=== PATIENT | male | born 1950 | race Caucasian/White ===

== ENCOUNTER → 2016-12-13 | Outpatient (CLI) | payer MEDICARE ==
[~2016-12-13] MED LIST: HYDR-3533 PO
[2016-12-13 10:02] LABS: APTT (PATIENT) 29.8 SEC (24.3-30.1); PROTHROMBIN TIME - PATIENT 10.7 SEC (9.8-11.6)
[2016-12-13 10:04] LABS: BLOOD, URINE TRACE (NEG); COMMENT (UR) CULT NOT INDICATED; CULTURE IF INDICATED CULT NOT INDICATED; GLUCOSE,URINE NEG (NEG); HYALINE CAST, URINE 21 /lpf (RARE); KETONE, URINE NEG (NEG); MUCUS URINE MANY /lpf (OCC); NITRITE,URINE NEG (NEG); PH, URINE 5.5 (5.0-8.5); URINE COLOR YELLOW (YELLW/STRAW)
[2016-12-13 10:05] LABS: AUTOMATED NEUTROPHIL # 2.9 TH/MM3 (1.8-7.7); BASOPHIL % 0.6 % (0.0-2.0); EOSINOPHIL # 0.2 TH/MM3 (0-0.4); EOSINOPHIL % 2.8 % (0.0-4.0); HEMATOCRIT 43.1 % (39.0-51.0); HEMO FLAGS DIFF FINAL; LYMPH % 34.2 % (9.0-44.0); LYMPHOCYTE # 1.9 TH/MM3 (1.0-4.8); MEAN CELL VOLUME 91.1 FL (80.0-100.0); MEAN CORPUSCULAR HEMOGLOBIN 30.8 PG (27.0-34.0); MEAN CORPUSCULAR HGB CONC 33.8 % (32.0-36.0); MONO % 8.9 % (0.0-8.0); NEUT % 53.5 % (16.0-70.0); PLATELET COUNT 257 TH/MM3 (150-450); RED BLOOD COUNT 4.73 MIL/MM3 (4.50-5.90); WHITE BLOOD COUNT 5.4 TH/MM3 (4.0-11.0)
[2016-12-13 10:20] LABS: ANION GAP 5 MEQ/L (5-15); AST (GOT) 15 U/L (15-37); BICARBONATE 29.8 MEQ/L (21.0-32.0); BLOOD UREA NITROGEN 10 MG/DL (7-18); CHLORIDE 105 MEQ/L (98-107); GLUCOSE,FASTING 89 MG/DL (74-99); POTASSIUM 3.7 MEQ/L (3.5-5.1); SODIUM (NA) 140 MEQ/L (136-145)
[2016-12-13 10:27] LABS: ALKALINE PHOSPHATASE 72 U/L (45-117); ALT (GPT) 25 U/L (12-78); GLOMERULAR FILTRATION RATE 65 ML/MIN (>89)
--- NOTE | 2016-12-13 10:39 | RADRPT ---
EXAM DATE/TIME: 12/13/2016 10:10 [facility] COMPARISON: No previous studies available for comparison. INDICATIONS : Evaluate for pneumonia, pneumothorax, or communicable disease. Pre op for ventriculoperitoneal shunt replacement. MEDICAL HISTORY : None. SURGICAL HISTORY : None. ENCOUNTER: Initial ACUITY: 1 day PAIN SCORE: 0/10 LOCATION: Bilateral chest FINDINGS: PA and lateral views of the chest demonstrate the lungs to be symmetrically aerated without evidence of mass, infiltrate or effusion. The cardiomediastinal contours are unremarkable. Osseous structure s are intact. CONCLUSION: No acute disease. hCuy Russo MD on December 13, 2016 at 10:37 Board Certified Radiologist. This report was verified electronically.
--- NOTE | 2016-12-13 14:38 | EKG ---
Date Performed: 12/13/2016 Time Performed: 08:55:54 PTAGE: 66 years EKG: SINUS BRADYCARDIA BORDERLINE ECG NO PREVIOUS TRACING DOCTOR: Ean Davis Interpretating Date/Time 12/13/2016 14:35:46
== END ==
LOC: CPRE 08:42
PROVIDERS: ATTEND Neurological Surgery
DX: Z01.812 Encounter for preprocedural laboratory examination (principal); Z01.810 Encounter for preprocedural cardiovascular examination; Z01.811 Encounter for preprocedural respiratory examination; G91.1 Obstructive hydrocephalus
CPT/HCPCS: 36415; 71020; 80053; 81001; 85025; 85610; 85730; 93005

== ENCOUNTER 2016-12-18 08:47 | Inpatient (IN) | payer MEDICARE ==
[~2016-12-18] VITALS: Ht 182.9 cm; Wt 97.8 kg
[2016-12-18] MEDS ORDERED: SODIUM CHLOR 0.9% 1000 ML INJ 1,000 ML IV SCH (09:00)
[2016-12-18] MEDS ORDERED: INSULIN HUMAN REGULAR 1,000 UNITS/10 ML VIAL SQ PRN (09:30)
[2016-12-18] MEDS ORDERED: LACTATED RINGER'S 1000 ML IV PRN (09:30)
[2016-12-18] MEDS ORDERED: SODIUM CHLORID 0.9% 500 ML IV PRN (09:30)
[2016-12-18] MEDS ORDERED: POVIDONE IODINE 5% (ANTISEPSIS KIT) 4 APPLICATIONS EACH NARE PRN (09:30)
[2016-12-18] MEDS ORDERED: METOPROLOL TARTRATE 25 MG TAB PO PRN (09:30)
[2016-12-18] MEDS ORDERED: CHLORHEXIDINE GLUCONATE 2 % 1 PACK (2 CLOTHS) TOPICAL PRN (09:30)
[2016-12-18] MEDS ORDERED: VANCOMYCIN HCL 1000 MG ON-CALL/NS 250 ML IV SCH ×2 (09:45)
[2016-12-18] MEDS ORDERED: SODIUM CHLOR 0.9% 250 ML INJ 250 ML ONE (10:12)
[2016-12-18] MEDS ORDERED: NALOXONE HCL 0.4 MG/ML AMP IV PRN (10:15)
[2016-12-18] MEDS ORDERED: diphenhydrAMINE HCL 50 MG/ML VIAL IV PUSH PRN (10:15)
[2016-12-18] MEDS ORDERED: ceFAZolin 2 GM PREMIX 50 ML IV SCH ×2 (10:15→14:30)
[2016-12-18] MEDS ORDERED: MORPHINE SULFATE 4 MG/ML INJ IV PUSH PRN ×3 (10:15→14:30)
[2016-12-18] MEDS ORDERED: ACETAMINOPHEN 325 MG TAB PO PRN ×2 (10:15→14:30)
[2016-12-18] MEDS ORDERED: ePHEDrine/NS 25 MG/5 ML SYR IV ONE (12:00)
[2016-12-18] MEDS ORDERED: MIDAZOLAM HCL 2 MG/2 ML VIAL IV ONE (12:00)
[2016-12-18] MEDS ORDERED: MORPHINE SULFATE 2 MG/ML INJ IV PUSH PRN (12:00)
[2016-12-18] MEDS ORDERED: HYDROmorphone HCL PCA 6 MG/30 ML IV SCH (12:00)
[2016-12-18] MEDS ORDERED: PROPOFOL 200 MG/20 ML AMP IV ONE (12:00)
[2016-12-18] MEDS ORDERED: ONDANSETRON HCL 4 MG/2 ML VIAL IV PUSH ONE (12:00)
[2016-12-18] MEDS ORDERED: SODIUM CHLORIDE 0.9% FLUSH 10 ML FLUSH IV FLUSH PRN (12:00)
[2016-12-18] MEDS ORDERED: LIDOCAINE HCL 1% PF 5 ML AMPULE OTHER ONE (12:00)
[2016-12-18] MEDS ORDERED: LACTATED RINGER'S 1000 ML INJ 1,000 ML IV ONE (12:00)
[2016-12-18] MEDS ORDERED: ROCURONIUM INJ 50 MG/5 ML SYRINGE IV PUSH ONE (12:00)
[2016-12-18] MEDS ORDERED: FAMOTIDINE 20 MG/2 ML VIAL ONE ×2 (12:46→14:52)
[2016-12-18] MEDS ORDERED: PCA - TOTAL MG DILAUDID DELIVERED PER SHIFT SCH (14:00)
[2016-12-18] MEDS ORDERED: THROMBIN (TOPICAL) 5,000 UNIT VIAL ONE (14:16)
[2016-12-18] MEDS ORDERED: GELATIN 12 MM/7 MM FOAM ONE (14:16)
[2016-12-18] MEDS ORDERED: LIDOCAINE 2%/EPINEPHrine PF 1:200,000 20ML SDV ONE (14:16)
[2016-12-18] MEDS ORDERED: BACITRACIN TOP OINT 15 GM TUBE ONE (14:16)
[2016-12-18] MEDS ORDERED: GENTAMICIN SULFATE 80 MG/2 ML VIAL ONE (14:17)
[2016-12-18] MEDS ORDERED: NS + KCL 20 MEQ INJ 1,000 ML IV SCH (14:29)
[2016-12-18] MEDS ORDERED: ACETAMINOPHEN/HYDROcodone 325 MG/10 MG TAB PO PRN ×2 (14:30)
[2016-12-18] MEDS ORDERED: SODIUM CHLORIDE 0.9% FLUSH 5 ML FLUSH IVF PRN (14:30)
[2016-12-18] MEDS ORDERED: EPINEPHRINE OTHER ONE (15:15)
[2016-12-18] MEDS ORDERED: LIDOCAINE OTHER ONE (15:15)
[2016-12-18] MEDS ORDERED: VANCOMYCIN INJ 1,000 MG in SODIUM CHLOR 0.9% 250 ML INJ 250 ML IV SCH (16:00)
--- NOTE | 2016-12-18 16:46 | PD.OP ---
Operative Report Date of Surgery: Dec 18, 2016 Preoperative Diagnosis: Normal pressure hydrocephalus Postoperative Diagnosis: Normal pressure hydrocephalus Procedure: Placement of ventriculoperitoneal shunt Anesthesia: general Surgeon: Ag Toribio Loom Blower(s): Nanda Person Operation and Findings: INTRAOPERATIVE FINDINGS:~ Clear cerebrospinal fluid with an opening pressure of 150 mm of water. INDICATIONS FOR PROCEDURE: Mr Guan is a 66 year old male with history of normal pressure hydrocephalus who presented with progressive gait imbalance and short term memory loss. He had chronic communicating hydrocephalus and his condition was getting progressively worse. He underwent evaluation with placement of a lumbar drain and cerebrospinal fluid drainage with very significant improvement in his symptoms. A ventriculoperitoneal shunt was indicated The [id number] details of the procedure, its indications, alternatives, risks , and potential complications of the surgery were fully discussed with the patient and his family. They fully understood. All their questions were answered. No guarantees were given. They voiced requesting the surgery and signed informed consent.They were offered the alternative of continuing nonsurgical treatment. DETAILS OF THE SURGICAL PROCEDURE: After the induction of general anesthesia, endotracheal intubation was performed. A Lennon catheter, bilateral JAN hose and sequential compression devices were placed and kept throughout the procedure. The patient was positioned supine on a 30-80 table with the head over a gel doughnut. All pressure points were carefully padded with eggcrate mattress. The right frontotemporal parietal area was shaved prepped and draped in the usual sterile fashion, as well as the neck, chest and abdomen. A small incision was made in the patient's right upper quadrant with a #10 blade and the dissection was carried out through the subcutaneous tissue and Tesha's fascia. The rectus sheath was carefully opened with Metzenbaum scissors and the rectus muscles were split along its fibers. The posterior rectus sheath was elevated and carefully opened. The peritoneum was elevated with mosquitoes and opened in the standard fashion. The peritoneal cavity was visualized and exposed. A pursestring suture was placed around the peritoneal opening. Using a tunneler a subcutaneous tunnel was created connecting the abdominal incision with the planned head incision. A small incision was made in the right frontal area and a self-retaining retractor was placed in the incision. An entry point for the catheter was selected 90 mm posterior to the supraorbital rim and 25 mm lateral to the midline. A Midas Efrain was used to create the shivani hole. The dura was coagulated with the bipolar in a cruciform fashion. A peritoneal catheter was placed in the subcutaneous tunnel previously created and a pocket was created underneath the galea for placement of the valve. A Padlet programmable valve has calibrated at a pressure of 110 mmHg and flushed according to the marketing summer intern's instructions. The valve was secured to the proximal end of the peritoneal catheter using a 2-0 silk. Then, a ventricular catheter was advanced into the ventricular system. A good flow of cerebrospinal fluid was obtained.~ The catheter was connected to the valve and the connection secured with a 2-0 silk. Cerebrospinal fluid was noted to drip through the distal end of the peritoneal catheter. The peritoneal catheter was placed in the peritoneal cavity under direct visualization. The pursestring suture was carefully adjusted with special care not to strangulate the catheter. The rectus sheath was closed using interrupted 2-0 Vicryl suture. The Tesha's fascia was approximated with 3-0 Vicryl, and the subcutaneous with 3-0 Vicryl. The skin was closed with running subcuticular 4-0 Vicryl in the abdomen. The skin incision was closed using interrupted 3-0 Vicryl for the galea and bertrand to the skin. At the end of the procedure, the sponge, needle and instrument counts were all correct. The estimated blood was less than 50 cc. No blood transfusion was given. No intraoperative complications occurred. The patient received preoperative prophylactic antibiotics. The patient was then extubated and transferred to the recovery room in stable condition. Ag Toribio MD Dec 18, 2016 16:46
[2016-12-18] MEDS ORDERED: DO NOT ADM ANY ANTICOAGULANT DRUGS PRN (16:51)
[2016-12-18] MEDS ORDERED: MORPHINE SULFATE 8 MG/ML INJ ONE (17:16)
[2016-12-18] MEDS ORDERED: *morphine SULFATE 8 MG/ML PERIprocedure ONLY ONE (17:49)
[2016-12-18] MEDS: NS + KCL 20 MEQ INJ 1,000 ML IV SCH ×2 (18:00→22:00)
[2016-12-18] MEDS ORDERED: *ENALAPRILAT 1.25 MG/ML VIAL PERIprocedural Use ONLY ONE ×2 (18:02→18:54)
[2016-12-18 19:24] LABS: CSF LYMPHOCYTES 0 %; CSF NEUTROPHILS 0 %; WBC TUBE #1 0 /MM3 (0-10)
[2016-12-18 20:06] VITALS: BP 163/85; PULSE 51; RESP 17; TEMP 97.2; O2SAT 94
[2016-12-18] MEDS: ONDANSETRON HCL 4 MG/2 ML VIAL IV PUSH PRN (20:44)
[2016-12-18] MEDS: ENALAPRILAT 1.25 MG/ML VIAL IV PRN (20:44)
[2016-12-18] MEDS: SODIUM CHLORIDE 0.9% FLUSH 10 ML FLUSH IV FLUSH SCH (20:44)
[2016-12-18] MEDS ORDERED: SODIUM CHLORIDE 0.9% FLUSH 5 ML FLUSH IVF SCH (21:00)
[2016-12-19] MEDS: VANCOMYCIN INJ 1,000 MG in SODIUM CHLOR 0.9% 250 ML INJ 250 ML IV SCH ×2 (00:02→10:57)
[2016-12-19 00:15] VITALS: BP 160/94; PULSE 74; RESP 17; TEMP 98.1; O2SAT 94
[2016-12-19] MEDS: ONDANSETRON HCL 4 MG/2 ML VIAL IV PUSH PRN ×2 (03:10→09:08)
[2016-12-19] MEDS: ENALAPRILAT 1.25 MG/ML VIAL IV PRN (03:10)
[2016-12-19 04:41] VITALS: BP 138/77; PULSE 67; RESP 17; TEMP 98.4; O2SAT 94
[2016-12-19 07:51] VITALS: BP 142/78; PULSE 64; RESP 20; TEMP 97.3; O2SAT 96
[2016-12-19] MEDS: NS + KCL 20 MEQ INJ 1,000 ML IV SCH ×2 (08:05→18:00)
[2016-12-19] MEDS: SODIUM CHLORIDE 0.9% FLUSH 10 ML FLUSH IV FLUSH SCH ×2 (08:08→21:00)
[2016-12-19] MEDS: PANTOPRAZOLE SODIUM 40 MG VIAL IVP SCH (08:08)
[2016-12-19] MEDS ORDERED: PANTOPRAZOLE SODIUM 40 MG VIAL IVP SCH (09:00)
[2016-12-19] MEDS ORDERED: HYDR-3533 PO (09:01)
--- NOTE | 2016-12-19 11:39 | HHI.NSPN ---
(Jossy Atkins) Note Status Status: Progress Note (Jossy Atkins) Interval History Interval History 66 y/o male s/p placement of ventriculoperitoneal shunt for communicating hydrocephalus on 12/18/16. 12/19: today reports not feeling too well, c/o nausea. feels he is not ready to go home. f/u CT Head pending (Jossy Atkisn) Labs, Micro, & Vital Signs Results Date Time Temp Pulse Resp B/P (MAP) Pulse Ox O2 Delivery O2 Flow Rate FiO2 12/19/16 07:51 97.3 64 20 142/78 (99) 96 12/19/16 04:41 98.4 67 17 138/77 (97) 94 12/19/16 00:15 98.1 74 17 160/94 (116) 94 12/18/16 20:06 97.2 51 17 163/85 (111) 94 12/18/16 19:05 58 16 155/85 (108) 96 Room Air 12/18/16 19:00 58 16 165/86 (112) 99 12/18/16 18:45 58 16 169/89 (115) 99 Nasal Cannula 2 12/18/16 18:30 58 16 177/95 (122) 98 Nasal Cannula 2 12/18/16 18:15 60 16 170/92 (118) 98 Nasal Cannula 2 12/18/16 18:00 60 16 182/102 (128) 98 Nasal Cannula 2 12/18/16 17:45 60 16 169/92 (117) 99 Nasal Cannula 2 12/18/16 17:30 62 16 174/92 (119) 97 Nasal Cannula 2 12/18/16 17:15 68 16 167/100 (122) 96 Nasal Cannula 2 12/18/16 17:00 97.5 84 16 161/94 (116) 95 Nasal Cannula 2 12/20/16 07:00 Intake Total 332.9 ml Balance 332.9 ml Constitutional Vital Signs Date Time Temp Pulse Resp B/P (MAP) Pulse Ox O2 Delivery O2 Flow Rate FiO2 12/19/16 07:51 97.3 64 20 142/78 (99) 96 12/19/16 04:41 98.4 67 17 138/77 (97) 94 12/19/16 00:15 98.1 74 17 160/94 (116) 94 12/18/16 20:06 97.2 51 17 163/85 (111) 94 12/18/16 19:05 58 16 155/85 (108) 96 Room Air 12/18/16 19:00 58 16 165/86 (112) 99 12/18/16 18:45 58 16 169/89 (115) 99 Nasal Cannula 2 12/18/16 18:30 58 16 177/95 (122) 98 Nasal Cannula 2 12/18/16 18:15 60 16 170/92 (118) 98 Nasal Cannula 2 12/18/16 18:00 60 16 182/102 (128) 98 Nasal Cannula 2 12/18/16 17:45 60 16 169/92 (117) 99 Nasal Cannula 2 12/18/16 17:30 62 16 174/92 (119) 97 Nasal Cannula 2 12/18/16 17:15 68 16 167/100 (122) 96 Nasal Cannula 2 12/18/16 17:00 97.5 84 16 161/94 (116) 95 Nasal Cannula 2 12/20/16 07:00 Intake Total 332.9 ml Balance 332.9 ml (Jossy Atkins) Physical Exam Mr. Guan is alert, awake and oriented to time, place and person. Speech is fluent. Follows commands well. Wound with clean dressing. Cranial nerve: pupils equal, round, and reactive to light. Extra-ocular movements are intact. Facial motor are normal and symmetrical. Neck is soft and supple. Motor: moves all four extremities well. Cerebellar examination is intact to [id number] test. (Jossy Atkins) Medications Current Medications Current Medications Medications (Trade) Dose Ordered Sig/Jeannie Route PRN Reason Start Time Stop Time Status Last Admin Dose Admin Metoprolol Tartrate (Lopressor) 25 mg SOCIAL SCIENCES DEPARTMENT CHAIR PRN PO SEE LABEL COMMENTS 12/18/16 09:30 12/21/16 09:29 Povidone Iodine (Betadine 5% Antisepsis Kit) 1 applic SOCIAL SCIENCES DEPARTMENT CHAIR PRN EACH NARE SEE LABEL COMMENTS 12/18/16 09:30 12/21/16 09:29 12/18/16 09:56 Chlorhexidine Gluconate (Chlorhexidine 2% Cloth) 3 pack SOCIAL SCIENCES DEPARTMENT CHAIR PRN TOPICAL SEE LABEL COMMENTS 12/18/16 09:30 12/21/16 09:29 12/18/16 09:20 Insulin Human Regular (NovoLIN R INJ) See Protocol Table ... SOCIAL SCIENCES DEPARTMENT CHAIR PRN SQ SEE PROTOCOL TABLE 12/18/16 09:30 12/21/16 09:29 Vancomycin HCl 1000 mg/Sodium Chloride 250 ml @ 250 mls/hr SOCIAL SCIENCES DEPARTMENT CHAIR IV 12/18/16 09:45 12/21/16 09:44 12/18/16 12:24 Potassium Chloride/Sodium Chloride 1,000 ml @ 100 mls/hr Q10H IV 12/18/16 12:00 12/19/16 08:05 Sodium Chloride (NS Flush) 2 ml UNSCH PRN IV FLUSH FLUSH AFTER USING IV ACCESS 12/18/16 12:00 Sodium Chloride (NS Flush) 2 ml BID IV FLUSH 12/18/16 21:00 12/19/16 08:08 Pantoprazole Sodium (Protonix Inj) 40 mg DAILY IVP 12/19/16 09:00 12/19/16 08:08 Morphine Sulfate (Morphine Inj) 2 mg Q2H PRN IV PUSH PAIN SCALE 1 TO 6 12/18/16 12:00 Morphine Sulfate (Morphine Inj) 4 mg Q2H PRN IV PUSH PAIN SCALE 7 TO 10 12/18/16 10:15 Acetaminophen (Tylenol) 650 mg Q4H PRN PO TEMPERATURE > 101.5 F 12/18/16 10:15 Acetaminophen/ Hydrocodone Bitart ([place] 10-325 Mg) 1 tab Q4H PRN PO PAIN SCALE 1 TO 5 12/18/16 14:30 Acetaminophen/ Hydrocodone Bitart ([place] 10-325 Mg) 2 tab Q4H PRN PO PAIN SCALE 6 TO 10 12/18/16 14:30 Vancomycin HCl 1000 mg/Sodium Chloride 250 ml @ 250 mls/hr Q12H IV 12/18/16 23:00 12/19/16 11:59 12/19/16 10:57 Miscellaneous Information ALL NURSING DEPARTME... UNSCH PRN .XX SEE LABEL COMMENTS 12/18/16 16:51 12/19/16 16:50 Enalaprilat (Vasotec Inj) 1.25 mg Q6H PRN IV SBP > 150 12/18/16 19:00 12/19/16 03:10 Ondansetron HCl (Zofran Inj) 4 mg Q6H PRN IV PUSH NAUSEA 12/18/16 20:30 12/19/16 09:08 (Jossy Atkins) Medical Decision Making MDM Remarks 66 y/o male s/p placement of CRIBBING SETTER shunt 12/18 (Jossy Atkins) Plan Plan Remarks awaiting f/u CT Head, may need to increase shunt pressure cont supportive care physical therapy Addendum: f/u CT Head reviewed, post-op mild SAH noted otherwise stable findings. dw Dr. Toribio will continue shunt draining at current setting at this time. reevaluate tomorrow. (Jossy Atkins) Attending Statement The exam, history, and the medical decision-making described in the above note were completed with the assistance of the mid-level provider. I reviewed and agree with the findings presented. I attest that I had a [id number] encounter with the patient on the same day, and personally performed and documented my assessment and findings in the medical record. (Ag Toribio MD) Jossy Atkins Dec 19, 2016 11:39 Ag Toribio MD Dec 19, 2016 13:14
[2016-12-19 11:47] VITALS: BP 154/86; PULSE 57; RESP 20; TEMP 98; O2SAT 95
--- NOTE | 2016-12-19 12:43 | RADRPT ---
EXAM DATE/TIME: 12/19/2016 12:05 [facility] COMPARISON: No previous studies available for comparison. INDICATIONS : Post op TECHNOLOGY TRAINER shunt. RADIATION DOSE: 36.58 CTDIvol (mGy) MEDICAL HISTORY : Cardiovascular disease. Hypertension. SURGICAL HISTORY : TECHNOLOGY TRAINER shunt ENCOUNTER: Initial ACUITY: 1 day PAIN SCALE: 0/10 LOCATION: cranial TECHNIQUE: Multiple contiguous axial images were obtained of the head. Using automated exposure control and adj ustment of the mA and/or kV according to patient size, radiation dose was kept as low as reasonably a chievable to obtain optimal diagnostic quality images. DICOM format image data is available electro nically for review and comparison. FINDINGS: TECHNOLOGY TRAINER shunt in good position. Small amount of subarachnoid hemorrhage right orbitofrontal region. Left hemisphere is unremarkable. Posterior fossa is normal. CONCLUSION: Shunt in good position. Trace subarachnoid hemorrhage right orbitofrontal region. Terry Vargas MD FACR on December 19, 2016 at 12:39 Board Certified Radiologist. This report was verified electronically.
[2016-12-19 15:33] VITALS: BP 147/75; PULSE 61; RESP 20; TEMP 97.8; O2SAT 95
[2016-12-19 20:00] VITALS: BP 161/84; PULSE 65; RESP 18; TEMP 98.4; O2SAT 94
[2016-12-20] VITALS (11 sets, daily range): BP systolic 161–180; BP diastolic 61–97; PULSE 59–98; RESP 18–20; TEMP 97.8–100.2; O2SAT 94–98
[2016-12-20] MEDS: NS + KCL 20 MEQ INJ 1,000 ML IV SCH ×2 (04:00→14:00)
[2016-12-20] MEDS: ENALAPRILAT 1.25 MG/ML VIAL IV PRN (04:37)
[2016-12-20] MEDS ORDERED: hydrALAZINE HCL 10 MG TAB PO PRN (06:00)
[2016-12-20] MEDS: SODIUM CHLORIDE 0.9% FLUSH 10 ML FLUSH IV FLUSH SCH (08:37)
[2016-12-20] MEDS: PANTOPRAZOLE SODIUM 40 MG VIAL IVP SCH (08:38)
--- NOTE | 2016-12-20 11:38 | HHI.NSPN ---
Note Status Status: Progress Note Interval History Interval History 66 y/o male s/p placement of ventriculoperitoneal shunt for communicating hydrocephalus on 12/18/16. 12/19: today reports not feeling too well, c/o nausea. feels he is not ready to go home. f/u CT Head pending 12/20: blood pressure elevated, patient was not taking his pain medications prescribed, received Lortab this morning feeling better. Labs, Micro, & Vital Signs Results Date Time Temp Pulse Resp B/P (MAP) Pulse Ox O2 Delivery O2 Flow Rate FiO2 12/20/16 11:30 100.2 98 20 172/97 (122) 98 12/20/16 08:15 98.3 62 20 178/97 (124) 95 12/20/16 07:16 174/90 (118) 12/20/16 07:10 179/93 (121) 12/20/16 07:05 178/97 (124) 12/20/16 06:30 180/94 (122) 12/20/16 06:17 171/92 (118) 12/20/16 05:30 170/93 (118) 12/20/16 04:57 61 18 166/61 (96) 94 12/20/16 04:00 97.8 59 18 166/90 (115) 94 12/20/16 00:00 98.4 65 18 161/84 (109) 94 12/19/16 20:00 98.4 65 18 161/84 (109) 94 12/19/16 15:33 97.8 61 20 147/75 (99) 95 12/19/16 11:47 98.0 57 20 154/86 (108) 95 Constitutional Vital Signs Date Time Temp Pulse Resp B/P (MAP) Pulse Ox O2 Delivery O2 Flow Rate FiO2 12/20/16 11:30 100.2 98 20 172/97 (122) 98 12/20/16 08:15 98.3 62 20 178/97 (124) 95 12/20/16 07:16 174/90 (118) 12/20/16 07:10 179/93 (121) 12/20/16 07:05 178/97 (124) 12/20/16 06:30 180/94 (122) 12/20/16 06:17 171/92 (118) 12/20/16 05:30 170/93 (118) 12/20/16 04:57 61 18 166/61 (96) 94 12/20/16 04:00 97.8 59 18 166/90 (115) 94 12/20/16 00:00 98.4 65 18 161/84 (109) 94 12/19/16 20:00 98.4 65 18 161/84 (109) 94 12/19/16 15:33 97.8 61 20 147/75 (99) 95 12/19/16 11:47 98.0 57 20 154/86 (108) 95 Physical Exam Mr. Guan is alert, awake and oriented to time, place and person. Speech is fluent. Follows commands well. Wound with clean dressing. Cranial nerve: pupils equal, round, and reactive to light. Extra-ocular movements are intact. Facial motor are normal and symmetrical. Neck is soft and supple. Motor: moves all four extremities well. Cerebellar examination is intact to [id number] test. Medications Current Medications Current Medications Medications (Trade) Dose Ordered Sig/Jeannie Route PRN Reason Start Time Stop Time Status Last Admin Dose Admin Metoprolol Tartrate (Lopressor) 25 mg SMOKING PIPE REPAIRER PRN PO SEE LABEL COMMENTS 12/18/16 09:30 12/21/16 09:29 Povidone Iodine (Betadine 5% Antisepsis Kit) 1 applic SMOKING PIPE REPAIRER PRN EACH NARE SEE LABEL COMMENTS 12/18/16 09:30 12/21/16 09:29 12/18/16 09:56 Chlorhexidine Gluconate (Chlorhexidine 2% Cloth) 3 pack SMOKING PIPE REPAIRER PRN TOPICAL SEE LABEL COMMENTS 12/18/16 09:30 12/21/16 09:29 12/18/16 09:20 Insulin Human Regular (NovoLIN R INJ) See Protocol Table ... SMOKING PIPE REPAIRER PRN SQ SEE PROTOCOL TABLE 12/18/16 09:30 12/21/16 09:29 Vancomycin HCl 1000 mg/Sodium Chloride 250 ml @ 250 mls/hr SMOKING PIPE REPAIRER IV 12/18/16 09:45 12/21/16 09:44 12/18/16 12:24 Potassium Chloride/Sodium Chloride 1,000 ml @ 100 mls/hr Q10H IV 12/18/16 12:00 12/20/16 04:00 Sodium Chloride (NS Flush) 2 ml UNSCH PRN IV FLUSH FLUSH AFTER USING IV ACCESS 12/18/16 12:00 Sodium Chloride (NS Flush) 2 ml BID IV FLUSH 12/18/16 21:00 12/20/16 08:37 Pantoprazole Sodium (Protonix Inj) 40 mg DAILY IVP 12/19/16 09:00 12/20/16 08:38 Morphine Sulfate (Morphine Inj) 2 mg Q2H PRN IV PUSH PAIN SCALE 1 TO 6 12/18/16 12:00 Morphine Sulfate (Morphine Inj) 4 mg Q2H PRN IV PUSH PAIN SCALE 7 TO 10 12/18/16 10:15 Acetaminophen (Tylenol) 650 mg Q4H PRN PO TEMPERATURE > 101.5 F 12/18/16 10:15 12/20/16 11:08 Acetaminophen/ Hydrocodone Bitart ([place] 10-325 Mg) 1 tab Q4H PRN PO PAIN SCALE 1 TO 5 12/18/16 14:30 12/20/16 08:37 Acetaminophen/ Hydrocodone Bitart ([place] 10-325 Mg) 2 tab Q4H PRN PO PAIN SCALE 6 TO 10 12/18/16 14:30 Enalaprilat (Vasotec Inj) 1.25 mg Q6H PRN IV SBP > 150 12/18/16 19:00 12/20/16 04:37 Ondansetron HCl (Zofran Inj) 4 mg Q6H PRN IV PUSH NAUSEA 12/18/16 20:30 12/19/16 09:08 Hydralazine HCl (Apresoline) 10 mg Q6H PRN PO SBP > 150 12/20/16 06:00 12/20/16 05:57 Medical Decision Making MDM Remarks 66 y/o male s/p placement of MARBLE POLISHER shunt 12/18 hypertension could be due to post-op pain, pt was not taking his pain medications Plan Plan Remarks dw patient regarding post-op surgical pain control, rx provided upon d/c Dr. Toribio cleared for discharge, recommends he obtain his blood pressure twice a day, if elevated to follow up with his primary care physician return to office in 10-12 days for staple removal avoid falls and head trauma, wound care discussed patient lives alone but reports his brother will stop by to check on him, will discharge with home health care service Jossy Atkins Dec 20, 2016 11:38
--- NOTE | 2016-12-20 11:41 | HHI.DS ---
Discharge Summary Admission Date Dec 18, 2016 at 08:55 Discharge Date: Dec 20, 2016 Admitting Diagnosis s/p PILOT PLANT SUPERVISOR shunt (1) Normal pressure hydrocephalus ICD Code: G91.2 - (Idiopathic) normal pressure hydrocephalus (2) S/P PILOT PLANT SUPERVISOR shunt ICD Code: Z98.2 - Presence of cerebrospinal fluid drainage device Brief History Mr Guan is a 66 year old male with history of normal pressure hydrocephalus who presented with progressive gait imbalance and short term memory loss. He had chronic communicating hydrocephalus and his condition was getting progressively worse. He underwent evaluation with placement of a lumbar drain and cerebrospinal fluid drainage with very significant improvement in his symptoms. A ventriculoperitoneal shunt was indicated Significant Findings Laboratory Tests Test 12/18/16 16:34 CSF RBC (Tube 1) 1486 /MM3 (NONE) Imaging Last Impressions Head CT 12/19/16 0000 Signed Impressions: Service Date/Time: Saturday, December 19, 2016 12:05 - CONCLUSION: Shunt in good position. Trace subarachnoid hemorrhage right orbitofrontal region. Terry Vargas MD [facility] Hospital Course Mr. Guan underwent placement of ventriculoperitoneal shunt on Dec 18, 2016 for Normal pressure hydrocephalus. His surgery went well without complications. Follow up CT Head showed stable post-op changes. Mr. Guan reported mild headaches and nausea following surgery which improved. He was discharged home in stable conditions. Pt Condition on Discharge: Stable Discharge Disposition: Disch w/ Home Health Serv Discharge Instructions DIET: Follow Instructions for: Heart Healthy Diet ACTIVITIES You can perform: Weight Bearing As [place] ADDITIONAL Activity Instructio: Avoid strenuous activities, avoid falls or head trauma. Follow up Referrals: Neurosurgery - 10 Days with Jossy Atkins PCP Follow-up - 2-3 Days New Medications: Hydrocodone-Acetaminophen (Lortab) 5-325 Mg Tab 1 TAB PO Q8HR PRN for PAIN, #62 TAB 0 Refills Jossy Atkins Dec 20, 2016 11:41
--- NOTE | 2016-12-20 11:41 | HHI.DCPOC ---
Discharge Care Plan Diagnosis: (1) Normal pressure hydrocephalus (2) S/P OFF TRACK BETTING MANAGER shunt Goals to Promote Your Health * To prevent worsening of your condition and complications * To maintain your health at the optimal level Directions to Meet Your Goals Take your medications as prescribed Follow your dietary instruction Follow activity as directed Keep your appointments as scheduled Take your immunizations and boosters as scheduled If your symptoms worsen call your PCP, if no PCP go to Urgent Care Center or Emergency Room Smoking is Dangerous to Your Health. Avoid second hand smoke Call the 24-hour hour crisis hotline for domestic abuse at Jossy Atkins Dec 20, 2016 11:41
--- NOTE | 2016-12-20 11:44 | HHI.FF ---
Face to Face Verification Diagnosis: (1) S/P PLANT MAINTENANCE MANAGER shunt (2) Normal pressure hydrocephalus Physical Therapy Order: Improve ambulation Home Health Nursing Order: Medical education Signs/symptoms of disease process Wound care and dressing changes Nursing assessment with vital signs I have seen patient Juan C Guan on 12/20/16. My clinical findings support the need for the requested home health care services because: Ltd mobility - disease progression Deconditioned w/ increased weakness Limited ability to care for self High risk of falls I certify that my clinical findings support that this patient is homebound because: Post-op weakness Unsteady gait/balance Jossy Atkins Dec 20, 2016 11:44
== END 2016-12-20 15:42 | disposition home health service (06) | DRG 33 ==
LOC: HSDI 08:55 → N05B 19:36
PROVIDERS: ADMIT Neurological Surgery; ATTEND Neurological Surgery
PROC: 00160J6 Bypass Cerebral Ventricle to Peritoneal Cavity with Synthetic Substitute, Open Approach (ICD-10-PCS; principal; 2016-12-18 15:10)
DX: G91.2 (Idiopathic) normal pressure hydrocephalus (principal); G91.1 Obstructive hydrocephalus; G91.0 Communicating hydrocephalus
CPT/HCPCS: 70450; 82945; 84157; 87070; 87205; 89051; C9113; J1580; J2250; J2270; J2405; J3010; J3370; J3480; J7050; J7120